=== PATIENT | male | born 2000 | race Caucasian/White ===

== ENCOUNTER → 2022-11-10 | Outpatient (CLI) | payer OTHER | LOC: RAD 11:53 | DX: M25.511 Pain in right shoulder (principal) ==

== ENCOUNTER → 2022-11-25 | Outpatient (CLI) | payer OTHER | LOC: RAD 08:59 | DX: M25.511 Pain in right shoulder (principal) ==

== ENCOUNTER 2022-12-03 07:53 | Outpatient (RCR) | payer OTHER | END 2023-01-02 | disposition home or self-care (01) | LOC: PT | DX: M54.50 Low back pain, unspecified (principal) ==